=== PATIENT | female | born 1990 | race African-American/Black ===

== ENCOUNTER 2019-10-14 06:42 | Inpatient (IN) | payer BC, SELFPAY ==
[2019-10-14 07:24] LABS: INR-International Normal Ratio 1.1; PTT 45.4 sec (22.9-36.1); Prothrombin Time 14.2 sec (12.0-14.7)
[2019-10-14 07:39] LABS: ALT (SGPT) 10 U/L (8-55); AST (SGOT) 13 U/L (5-34); Albumin 4.1 g/dL (3.5-5.0); Alkaline Phosphatase 75 U/L (40-110); Anion Gap 12 mmol/L (10-20); BUN (Urea Nitrogen) 12 mg/dL (7.0-18.7); Bilirubin, Total 0.3 mg/dL (0.2-1.2); CK (CPK) 98 U/L (29-168); Calc. Creatinine Clearance 0 mL/min (70-130); Calcium 9.7 mg/dL (7.8-10.44); Carbon Dioxide 23 mmol/L (22-29); Chloride 107 mmol/L (98-107); Estimated GFR-MDRD 84; Globulin 3.2 g/dL (2.4-3.5); Glucose 107 mg/dL (70-105); Protein, Total 7.3 g/dL (6.0-8.3); Sodium 138 mmol/L (136-145)
--- NOTE | 2019-10-14 07:49 | CT ---
PRELIMINARY REPORT/[facility]/EMERGENCY AFTER HOURS PROCEDURE: This report was discussed with Shasta Almonte RN by Maureen Champion on Oct 14, 2019 07:06:00 CDT. Urmila waylon electronically signed by Maureen Champion on October 14, 2019 7:06:25 AM CDT PROCEDURE: CT Head without Contrast . HISTORY: Right-sided weakness and altered mental status with aphasia. TECHNIQUE: Axial images were performed without the administration of IV contrast with or without mult iplanar reformations . COMPARISON: None . FINDINGS: Brain shows no mass, hemorrhage, or acute stroke. Ventricles are normal size for patient's age. No acute skull or scalp abnormality. Visualized sinuses and mastoids are clear. IMPRESSION: Normal CT scan of the head . ELECTRONICALLY SIGNED BY: Indra Vega MD Oct 14, 2019 6:58:02 AM CDT FINAL REPORT HEAD CT WITHOUT CONTRAST: HISTORY: Level 1 stroke. Last seen normal today. Right-sided weakness. COMPARISON: None. FINDINGS: Hemorrhage: No intraparenchymal hemorrhage or extra-axial hematoma. Brain parenchyma: Cortical saavedra-white matter differentiation is preserved. No mass effect or midline shift. Basilar cisterns are patent. Ventricular system: Ventricles and sulci are patent and symmetric. Calvarium: Intact. Sinuses and mastoid air cells: Adequate aeration. IMPRESSION: 1. This report is in agreement with initial report by [facility]. 2. No acute intracranial process. Transcribed Date/Time: 10/14/2019 8:14 AM
--- NOTE | 2019-10-14 07:59 | RAD ---
Exam: Chest one view HISTORY:Difficulty with speech. Weakness. Comparison: None FINDINGS: Cardiac silhouette: Normal Aorta: Unremarkable Pulmonary vessels: Normal Costophrenic angles: Clear LUNGS: No masses or consolidation. Pneumothorax: None Osseous abnormalities: None IMPRESSION: No acute cardiopulmonary process.
--- NOTE | 2019-10-14 08:12 | CT ---
PRELIMINARY REPORT/[facility]/EMERGENCY AFTER HOURS PROCEDURE: his report was discussed with Dasha Stevens RN by Tami Parmar on Oct 14, 2019 07:18:00 CDT. Addendum electronically signed by Tami Parmar on October 14, 2019 7:19:18 AM CDT EXAM: CTA Head and Neck with Intravenous Contrast. CLINICAL HISTORY: LEVEL ONE STROKE//LAST SEEN NORMAL 0600 TODAY//RIGHT SIDED WEAKNESS//AMS//APHASIA TECHNIQUE: Axial CTA images of the head and neck performed with intravenous contrast. Two-dimensional MIP and/or three-dimensional MIP and volume rendered reformations were performed. Note: Per PQRS, the description of internal carotid artery percent stenosis, including 0 percent or normal exam, is b ased on [place] Symptomatic Carotid Endarterectomy Trial (NASCET) criteria. CONTRAST: With; ISOVUE 370,100mL COMPARISON: Noncontrast CT head earlier same day. FINDINGS: CTA NECK: COMMON CAROTID ARTERIES No significant stenosis. No dissection or occlusion. INTERNAL CAROTID ARTERIES No stenosis by NASCET criteria. No dissection or occlusion. VERTEBRAL ARTERIES No significant stenosis. No dissection or occlusion. CTA HEAD: ANTERIOR CEREBRAL ARTERIES No significant stenosis. No occlusion. No aneurysm. MIDDLE CEREBRAL ARTERIES No significant stenosis. No occlusion. No aneurysm. POSTERIOR CEREBRAL ARTERIES No significant stenosis. No occlusion. No aneurysm. BASILAR ARTERY No significant stenosis. No occlusion. No aneurysm. OTHER: Mosaic attenuation of the visualized lungs. Residual thymic tissue. Dense fibroglandular rosanna ast tissue. SOFT TISSUES No acute finding. No masses or lymphadenopathy. BONES No acute osseous abnormality. IMPRESSION: No vascular derangement noted on angiogram of the head and neck. Consider MRI if symptom s persist. ELECTRONICALLY SIGNED BY: Ilan Molina MD Oct 14, 2019 7:14:44 AM CDT FINAL REPORT: EXAM: CT ANGIOGRAM OF THE HEAD AND NECK INDICATION: Stroke. COMPARISON: None. TECHNIQUE: CT angiogram of the head and neck are performed in the axial plane. Three-dimensional reformatted guillermo ges are submitted for interpretation. FINDINGS: CTA OF THE HEAD WITH AND WITHOUT CONTRAST: POSTCONTRAST CT OF BRAIN: Pathologic enhancement: No pathologic enhancement the brain. Postcontrast soft tissue neck CT: Aerodigestive tract: Patent. No mucosal abnormality. Sinuses: Adequate aeration.. Orbits: Bilateral ocular lenses are appropriately located. Both globes are intact. Retrobulbar fat is preserved. Symmetric attenuation the optic nerves and ocular rectus muscles. Salivary glands:Symmetric attenuation of the parotid and submandibular glands. Thyroid gland: Appropriate attenuation. Lymph nodes: No evidence of lymphadenopathy by size criteria. Paraspinal muscles: Symmetric attenuation of the sternocleidomastoid muscles. Appropriate attenuation of the paraspinal muscles. Cervical spine:Vertebral body height is maintained. No fracture. No significant central canal stenosi s or significant neural foraminal narrowing. Limited evaluation by technique. Upper mediastinum and lung apices: No acute abnormality. CTA OF THE NECK WITH CONTRAST: Aorta: Appropriate enhancement and luminal diameter. Right carotid artery: Appropriate enhancement and luminal diameter. No significant stenosis based upo n NASCET criteria. Left carotid: Appropriate enhancement and luminal diameter. No significant stenosis based upon NASCET criteria. Subclavian arteries:Appropriate enhancement. Vertebral arteries:Patent throughout their course in the neck. Vertebral arteries are essentially cod ominant. CTA OF THE BRAIN: Intracranial internal carotid arteries:Appropriate enhancement and luminal diameter. Anterior circulation: Slightly decreased in luminal diameter of the right A1 segment, likely represen ting a congenital variant. Proximal A2 segments are essentially symmetric. The right A2 segment is supplied via a patent anterior communicating artery. Symmetric enhancement and luminal diameter of th e M1 segments and proximal MCA branches. Intracranial vertebral arteries: Appropriate enhancement and luminal diameter. Posterior circulation: Appropriate enhancement and luminal diameter. No significant stenosis. IMPRESSION: 1. This report is in agreement with initial report by [facility]. 2. No significant stenosis. Transcribed Date/Time: 10/14/2019 8:38 AM
[2019-10-14 09:01] LABS: #Eosinphils 0.1 thou/uL (0.0-0.7); #Lymphocytes 1.4 thou/uL (1.20-3.40); #Monocytes 0.6 thou/uL (0.11-0.59); #Neutrophils 5.3 thou/uL (1.40-6.50); %Basophils 0.2 % (0.0-1.0); %Eosinophils 1.2 % (0.0-10.0); %Lymphocytes 18.5 % (21.0-51.0); %Monocytes 8.4 % (0.0-10.0); %Neutrophils 71.8 % (42.0-75.0); Hemoglobin 11.1 g/dL (12.0-16.0); Mean Corpuscular HGB CONC 32.6 g/dL (32.0-36.0); Mean Corpuscular Hemoglobin 27.4 pg (27.0-31.0); Mean Corpuscular Volume 84.1 fL (78.0-98.0); Mean Platelet Volume 8.9 fL (7.4-10.4); Platelet Count 133 thou/uL (130-400); RBC Distribution Width 13.9 % (11.5-14.5); Red Blood Cell (RBC) Count 4.03 mill/uL (4.20-5.40); White Blood Cell (WBC) Count 7.4 thou/uL (4.8-10.8)
--- NOTE | 2019-10-14 09:03 | PDOC.FPRHP ---
- History of Present Illness Chief Complaint: AMS, Right sided weakness History of Present Illness: Patient is a 29 yo female with PMHx of Anemia, DVT 3 years ago, and Migraines who presents with complaint of right-sided weakness and difficulty with speech. The weakness has since resolved in her right leg but remains in right arm. Per EMS, her mother noted these deficits approximately 45 minutes prior to calling 911. Patient also had similar episode yesterday and was seen at [facility] with negative workup, discharged to home with a diagnosis of transient alteration of consciousness. Mom said she minimally talked last night and slept most of the afternoon. She also did not eat much for dinner or breakfast this morning. Her last seen normal was yesterday morning (10/13/2019). Per ED provider, while in the ER the Patient would nod and shake her head in response to questions. When asked her to speak, she refused. She then was able to mutter some words that did not seem to make sense. When asked if she had any pain she shook her head no. When asked if this episode this morning is the same as what prompted her ER visit yesterday, she nodded yes. On exam currently she continues to nod/shake her head in response to questions. Attempts to speak, but just mumbles. Pt Nods no when asked if she has headache. Mother voices patient has not had a headache the last 2-3 days. Pt nods no when asked if in any pain. Nods yes when asked if has heavy periods. Mom reports patient has heavy menses with large clots monthly, lasts about 7 days. Mom states pt takes Gabapentin for "nerve pain" in her right arm for past 2-3 years. Takes Amitriptyline & Tylenol for migraines. *most of the history and ROS is obtained from patient's mother who was present at bedside for entirety of interview and exam* ED Course: Given ASA 162 mg. - Allergies/Adverse Reactions Allergies Allergy/AdvReac Type Severity Reaction Status Date / Time No Known Allergies Allergy Unverified 10/14/19 10:43 - Home Medications Medication Instructions Recorded Confirmed Type Acetaminophen [Tylenol Extra 1,000 mg PO Q8H PRN 10/14/19 10/14/19 History Strength] Amitriptyline HCl 10 mg PO HS 10/14/19 10/14/19 History Ferrous Sulfate [Slow Fe] 142 mg PO 10/14/19 History Gabapentin 300 mg PO TID 10/14/19 10/14/19 History Rivaroxaban [Xarelto] 10 mg PO DAILY 10/14/19 10/14/19 History Comments: Per ED med rec, patient takes Tylenol, Amitriptyline, Gabapentin, Xarelto - History PMHx: Anemia, Migraines, Menorrhagia, hx of DVT in 2017 PSHx: breast reduction, left ovary removed FHx: HTN, DM Social: denies EtOH, tobacco, ilicit drug use. Patient's mother reports pt has never used control including any implants (Nexplanon, IUD). - Review of Systems General: reports: weight/appetite/sleep changes (decreased appetite). denies: fever/chills, fatigue ENT: denies: nasal congestion Respiratory: denies: cough, congestion, shortness of breath Cardiovascular: denies: chest pain, palpitation, edema Gastrointestinal: denies: nausea, vomiting, diarrhea, abdominal pain, GI bleeding Genitourinary: denies: dysuria Skin: denies: rashes, lesions, jaundice, itching Musculoskeletal: denies: pain, swelling Neurological: reports: weakness. denies: numbness, syncope, seizure Psychological: reports: other (denies stressors) - Vital signs BP: 127.74 HR: 85 RR: 20 Tmax: 98.6F Pox: 100% on RA - Physical Exam Constitutional: NAD -Constitutional: awake, alert, oriented to person only, unable to assess place & time due to mostly nonverbal status HEENT: normocephalic and atraumatic, conjunctiva clear, no scleral icterus, grossly normal hearing, MMM -HEENT: will track to left and to midline but not to right side. Can look straight ahead. Will turn head to left but will not turn head to right, instead lifts up body and turns torso to look to right side. Neck: supple, FROM, trachea midline, no JVD, no thyromegaly Chest: no-tender to palpation, no lesions Heart: RRR, normal S1/S2, no murmurs/rubs/gallops, pulses present, no edema Lungs: CTAB, no respiratory distress, good air movement Abdomen: soft, non-tender, bowel sounds present, no masses/distention Musculoskeletal: normal structure, normal tone -Musculoskeletal: moving left UE/LE and right LE but does not move right UE. Neurological: normal sensation -Neurological: CN 2-3, 5, 7, 9-12 intact. Questionable CN 4/6 exam. These are intact on left but possible CN 4/6 palsy on right. Skin: no rash/lesions, good turgor, no jaundice Heme/Lymphatic: no unusual bruising or bleeding -Psychiatric: normal affect, answer yes/no questions but not always appropriately FMR H&P: Results - Labs Result Diagrams: 10/14/19 06:48 10/14/19 06:48 Lab results: Sodium 138 mmol/L (136-145) 10/14/19 06:48 Potassium 4.0 mmol/L (3.5-5.1) 10/14/19 06:48 Chloride 107 mmol/L (98-107) 10/14/19 06:48 Carbon Dioxide 23 mmol/L (22-29) 10/14/19 06:48 BUN 12 mg/dL (7.0-18.7) 10/14/19 06:48 Creatinine 0.96 mg/dL (0.6-1.1) 10/14/19 06:48 Glucose 107 mg/dL (70-105) H 10/14/19 06:48 Calcium 9.7 mg/dL (7.8-10.44) 10/14/19 06:48 Total Bilirubin 0.3 mg/dL (0.2-1.2) 10/14/19 06:48 AST 13 U/L (5-34) 10/14/19 06:48 ALT 10 U/L (8-55) 10/14/19 06:48 Alkaline Phosphatase 75 U/L (40-110) 10/14/19 06:48 Creatine Kinase 98 U/L (29-168) 10/14/19 06:48 Serum Total Protein 7.3 g/dL (6.0-8.3) 10/14/19 06:48 Albumin 4.1 g/dL (3.5-5.0) 10/14/19 06:48 - Radiology Interpretation CT scan - head Status: report reviewed by me (no acute pathology) Other Status: report reviewed by me (CTA head/neck: normal, no areas of stenosis) Chest x-ray Status: report reviewed by me (no acute process) FMR H&P: A/P - Problem List (1) Altered mental status Current Visit: Yes Status: Acute Code(s): R41.82 - ALTERED MENTAL STATUS, UNSPECIFIED Qualifiers: Altered mental status type: transient alteration of awareness Qualified Code(s): R40.4 - Transient alteration of awareness (2) Elevated troponin Current Visit: Yes Status: Acute Code(s): R79.89 - OTHER SPECIFIED ABNORMAL FINDINGS OF BLOOD CHEMISTRY - Plan Patient is a 29 yo female who presents with AMS and right-sided weakness whose complaints have now resolved: #Acute Encephalopathy, unknown source -suspect psychosomatic component, low suspicion for intracranial pathology given negative imaging and resolving complaints -fluctuating weakness reported in right UE -CT head negative -CTA head/neck negative -CXR negative -place on stroke, neuro checks -CMP wml -check TSH, RPR, UA, UDS, UPT -MRI pending, r/o Multiple Sclerosis given age and presentation -consider MHMR consult if workup negative #Indet Troponin -trop 0.024, will trend -EKG: NSR, rate 83 #Anemia, normocytic -pt reports hx of, has not taken home Fe in 2-3 months, will restart -admission Hgb 11.1, MCV 84, will monitor #Hx of DVT -continue Xarelto -reports hx of heavy menses with large clots, consider antiphospholipid syndrome outpt workup Diet: Regular VTE: Xarelto GI PPX: Tums Code status: FULL Dispo: Stable, admitted to obs on stroke unit. Continue to monitor for mental status changes. Anticipate LOS <48 hrs. FMR H&P: Upper Level - Pertinent history 29 yo AAF with PMH of DVT on xarelto, anemia, Rt arm neuropathy, and migraines ( on amitryptiline PRN) presents for waxing and waning symptoms that started yesterday around 0745 AM. Hx is taken mostly from mother as patient has difficulty speaking, but patient nods her head yes and no (sometimes her answers are inconsistent). Mother reports yesterday morning she was having difficulty walking due to weakness as well as difficulty talking, then was "non- responsive" in her chair. They had a workup at [facility] with a negative head CT, and were sent home with a diagnosis of TIA. Her symptoms were not at baseline when the left [facility] per mother. This morning, pt acutely worsened with difficulty walking and her speech became worse. They called EMS, who brought them [facility] ED. Mother reports pt had a headache 2 nights ago ( night). Mother denies psych history in the patient or recent stressors, SI/HI. She lives at home with her mother and twin sister. Denies current headache, reports loss of appetite. Denies fever/chills, cough/congestion, vomiting/nausea , chest pain/palpitationsdominal pain/dysuria/hematuria/hematochezia. Reports constipation. Mother denies that patient has hx of STIs, tobacco, alcohol, or drug use. In the ED: CT head neg for bleed, CTA head/neck normal. EKG showed NSR in the 80s. Patient's symptoms were waxing and waning: it was noted in the ED documentation that her symptoms seemed to worsen when her mother was present. - Pertinent findings General: Patient appears drowsy, slow to respond to questions. Eyes: PERRLA. Difficulty tracking gaze to the right at times, however she was able to at times. +Gaze palsy. Unable to assess visual field quadrants Mouth: MMM, no erythema, soft palate lifts equally bilaterally Throat: No LAD, trachea midline, supple Heart: RRR no murmur Lungs: BCTA Abd: soft, nontender, BS+, obese Extremities: Pulses 2+ in all extremities Neuro: +aphasia (she can state yes or no at times, can state short phrases). Nods yes or shakes head no. Inconsistently answers questions. Right facial droop. Entry Analyst strength 3/5 right hand, Rt arm had small movement against gravity. Unable to perform FTN or heel to szymanski bilaterally. +dysdiadochokinesia. Patellar reflex 2+ bilat. Strength 5/5 BLE. Strength 5/5 LUE. - Plan Date/Time: 10/14/19 0901 Yee Aggarwal, have evaluated this patient and agree with findings/plan as outlined by music industry intern resident. Pertinent changes/additions are listed here. Acute Encephalopathy CVA r/o, concern for MS vs other -symptoms seem to be waxing/waning, onset >24 hrs ago. S/p ASA. NIH 11 on my exam. -CTA head/neck negative, CT Head WNL -MRI to evaluate for CVA vs MS vs other -UA, UDS, RPR, TSH pending -FLP and A1C to evaluate risk factors -Reassess patient once mother not present to see if symptoms have changed; if no organic cause found, consider psychosomatic source -Request records from [facility] Anemia -Continue home Fe hx of DVT -Continue home xarelto -No concerning sx of DVT on exam Diet: NPO for speech DVT ppx: home xarelto PCP: [facility], [facility] physician Code status: full code Admit: stroke obs, LOS <48 hrs Addendum - Attending - Attending Attestation Date/Time: 10/14/19 1097 I personally evaluated the patient and discussed the management with Dr. Mcdermott/ Sho. I agree with the History, Examination, Assessment and Plan documented above with any addition or exceptions noted below. Patient here with history of DVT/VTE who presents with acute mental status change and focal neuro deficit that may be fluctuating. CT/CTA negative. Will admit for encephalopathy and CVA r/o. MRI. Possible neuro consult, but also need to see if this could be psychological after ensuring no major medical component. Further mgmt pending MRI result.
[2019-10-14] MEDS ORDERED: Aspirin Chewable 81 MG TAB ONE (09:10)
[2019-10-14 09:12] LABS: BHCG - Serum Negative (NEGATIVE); Pregs Control Background? CLEAR/WHITE (CLR/WHITE); Pregs Control Bar Appear? YES (CONTROL BAR)
[2019-10-14] MEDS ORDERED: Ondansetron ODT 4 MG TAB SL PRN (10:44)
[2019-10-14] MEDS ORDERED: Ondansetron PF 4 MG/2 ML Vial IVP PRN (10:44)
[2019-10-14] MEDS ORDERED: Acetaminophen 325 MG TAB PO PRN ×2 (10:44→11:55)
[2019-10-14 10:59] LABS: Troponin I 0.021 ng/mL (< 0.028)
[2019-10-14 11:08] VITALS: BMI 34.2
[2019-10-14] MEDS ORDERED: Ondansetron ODT 4 MG TAB PO PRN (11:55)
[2019-10-14] MEDS ORDERED: Senokot S 8.6-50 MG TAB PO PRN (11:55)
[2019-10-14] MEDS ORDERED: Calcium Carbonate 500 MG ChewTAB PO PRN (11:55)
[2019-10-14] MEDS ORDERED: Aspirin 81 mg Enteric Coated Tablet PO SCH (12:15)
[2019-10-14 14:28] LABS: Bacteria/HPF None Seen HPF (None Seen); Bilirubin Negative (Negative); Blood, Urine Negative (Negative); Clarity Clear (Clear); Glucose, Urine (Dipstick) Normal (Negative); Leukocyte Negative Leu/uL (Negative); Nitrite Negative (Negative); Protein, Urine (Dipstick) Negative (Neg-Trace); RBC/HPF 0-3 HPF (0-3); Squamous Epithelial 0-3 HPF (0-3); Urobilinogen Normal mg/dL (Less than 2); WBC/HPF 0-3 HPF (0-3)
[2019-10-14 14:31] LABS: Urine Culture Reflex No No
[2019-10-14 14:39] LABS: Amphetamine Not Detected (NotDetected); Barbiturates Screen Not Detected (NotDetected); Benzodiazepine Screen Not Detected (NotDetected); Cocaine Metabolite Screen Not Detected (NotDetected); Medtox Control Line Valid? VALID (VALID); Medtox Reader # READER 4; Methadone Not Detected (NotDetected); Methamphetamine Not Detected (NotDetected); Opiate Screen Not Detected (NotDetected); Oxycodone Screen Not Detected (NotDetected); Phencyclidine (PCP) Not Detected (NotDetected); THC/Cannabinoid Screen Not Detected (NotDetected); Tricyclic Screen Not Detected (NotDetected)
[2019-10-14 15:03] LABS: Cardiac Risk 3.7 (Less than 4.5)
--- NOTE | 2019-10-14 15:03 | MRI ---
Exam: Brain MRI without contrast HISTORY: Right-sided weakness. Evaluate for CVA versus candidate ischemic attack COMPARISON: None FINDINGS: Calvarial marrow signal intensity: Appropriate T1 signal Gradient echo sequence: No hemorrhage Brain parenchyma: No mass, mass effect or midline shift. Brain volume, age-appropriate. Cortical saavedra-white matter differentiation: Preserved Restricted diffusion: There is absent restricted diffusion involving the left peguero radiata along wi th additional areas of restricted diffusion involving the cortex and subcortical white matter along the left temporal lobe. Additional restricted diffusion is noted in the left deep saavedra matter structu res. White matter signal intensities:There is associated T2 and FLAIR white matter hyperintensities with t he areas of infarction as described above. There is sulcal effacement edema involving the left temporal lobe. Sinuses: Adequate aeration of the paranasal sinuses and mastoid air cells. IMPRESSION: Acute left MCA distribution infarct.
[2019-10-14 15:11] LABS: Troponin I 0.021 ng/mL (< 0.028)
[2019-10-14 15:23] LABS: Syphilis Antibody Nonreactive (Nonreactive); Syphilis Antibody Index 0.06 S/CO (<1.00 Non-Reactive)
[2019-10-14] MEDS ORDERED: hydrALAZINE 20 MG/ML VIAL SLOW IVP PRN (15:53)
[2019-10-14] MEDS ORDERED: Clopidogrel Bisulfate 75 MG TAB PO SCH (16:00)
[2019-10-14] MEDS: Atorvastatin Calcium 40 MG TAB PO SCH (21:36)
[2019-10-15 05:00] LABS: #Eosinphils 0.1 thou/uL (0.0-0.7); #Lymphocytes 1.3 thou/uL (1.20-3.40); #Monocytes 0.6 thou/uL (0.11-0.59); #Neutrophils 4.9 thou/uL (1.40-6.50); %Basophils 0.5 % (0.0-1.0); %Eosinophils 1.5 % (0.0-10.0); %Lymphocytes 18.3 % (21.0-51.0); %Monocytes 9.2 % (0.0-10.0); %Neutrophils 70.5 % (42.0-75.0); Hemoglobin 10.3 g/dL (12.0-16.0); Mean Corpuscular Hemoglobin 26.7 pg (27.0-31.0); Mean Corpuscular Volume 83.5 fL (78.0-98.0); Mean Platelet Volume 9.1 fL (7.4-10.4); Platelet Count 150 thou/uL (130-400); RBC Distribution Width 14.1 % (11.5-14.5); Red Blood Cell (RBC) Count 3.84 mill/uL (4.20-5.40); White Blood Cell (WBC) Count 6.9 thou/uL (4.8-10.8)
[2019-10-15 05:18] LABS: ALT (SGPT) 9 U/L (8-55); AST (SGOT) 14 U/L (5-34); Albumin 3.8 g/dL (3.5-5.0); Alkaline Phosphatase 68 U/L (40-110); Anion Gap 11 mmol/L (10-20); BUN (Urea Nitrogen) 8 mg/dL (7.0-18.7); Bilirubin, Total 0.3 mg/dL (0.2-1.2); Calc. Creatinine Clearance 169 mL/min (70-130); Calcium 9.4 mg/dL (7.8-10.44); Carbon Dioxide 21 mmol/L (22-29); Cardiac Risk 3.9 (Less than 4.5); Chloride 107 mmol/L (98-107); Cholesterol 198 mg/dl (< 200 Desired); Estimated GFR-MDRD Greater than 90; Globulin 3.1 g/dL (2.4-3.5); Glucose 100 mg/dL (70-105); HDL Cholesterol 51 mg/dL (>60 Neg Risk); LDL Cholesterol, Calculated 131 mg/dL; Potassium 3.8 mmol/L (3.5-5.1); Protein, Total 6.9 g/dL (6.0-8.3); Sodium 135 mmol/L (136-145); Triglycerides 79 mg/dL (Less than 150)
--- NOTE | 2019-10-15 07:48 | PDOC.FM ---
- Subjective Subjective: Patient stable this morning compared to exam yesterday. She continues to be able to answer yes/no questions by shaking her head, however she is not able to state words. She does express that she has some decreased sensation on right side compared to left. RUE still weak compared to LUE. Patient was found on MRI yesterday to have acute left MCA infarct. Further discussion with Patient's mother revealed that patient is followed by Dr. Tucker at [facility] for "blood disorder ". Mom states that she was told that "myself and Aracely could have a blood clot at any time and we're both on blood thinners for it". Mother also states that patient's Xarelto was recently decreased from 20 mg to 10 mg daily. - Objective MAR Reviewed: Yes Vital Signs & Weight: Vital Signs (12 hours) Temp Pulse Resp BP Pulse Ox 10/15/19 03:31 98.2 F 92 18 120/67 98 10/14/19 23:50 98.5 F 67 20 138/78 99 10/14/19 20:00 99 Weight Weight 111.158 kg I&O: 10/14/19 10/15/19 10/16/19 06:59 06:59 06:59 Intake Total 150 Output Total 150 Balance 0 Result Diagrams: 10/15/19 04:38 10/15/19 04:38 Phys Exam - Physical Examination Constitutional: NAD HEENT: moist MMs, sclera anicteric unable to track past midline to the right side Neck: no JVD, supple, full ROM Respiratory: no wheezing, clear to auscultation bilateral Cardiovascular: RRR, no significant murmur Gastrointestinal: soft, no distention, positive bowel sounds Musculoskeletal: no edema, pulses present strength 3/5 RUE, 5/5 LUE, 4/5 RLE, 5/5 LLE. Decreased sensation on right. Psychiatric: normal affect Deviation from normal: alert, oriented to person & place, difficult to assess time Skin: no rash, normal turgor Dx/Plan (1) Altered mental status Code(s): R41.82 - ALTERED MENTAL STATUS, UNSPECIFIED Status: Acute Qualifiers: Altered mental status type: transient alteration of awareness Qualified Code(s): R40.4 - Transient alteration of awareness (2) Elevated troponin Code(s): R79.89 - OTHER SPECIFIED ABNORMAL FINDINGS OF BLOOD CHEMISTRY Status : Acute - Plan Plan: Patient is a 29 yo female who presents with AMS and right-sided weakness whose complaints have now resolved: #Acute Infarct of left MCA -MRI on 10/13 reveals acute infarct of left MCA -continued weakness in right UE, stable compared to yesterday's exam -patient able to answer yes/no questions, is not stating words -CT head negative on 10/13 -repeat CT head on 10/14 preliminary report states no acute bleed, has evolving left MCA stroke with mild increased edema of periventricular white matter and anterior left basal ganglia region -CTA head/neck negative -CXR negative -place on stroke, neuro checks q4h with NIHSS, stroke team notified -CMP wml -TSH 0.613 -RPR, UA, UDS, UPT all negative -Consult Neurology, Dr. Mcwilliams, appreciate recs -obtain ECHO, results pending -hold Xarelto at this time to prevent hemorrhagic conversion, can consider restarting Xarelto if head CT today does not reveal an acute bleed or progression -PT/OT/Speech consulted, appreciate recs--recommend inpt rehab -Post-acute screen placed today -Case Management consulted today for discharge planning, anticipate patient will need inpatient rehab #Indet Troponin -trop 0.024, will trend, 0.021, 0.021 -EKG: NSR, rate 83 #Anemia, normocytic -pt reports hx of, has not taken home Fe in 2-3 months, will restart -admission Hgb 11.1, MCV 84, will monitor #Hx of DVT -hold Xarelto due to acute CVA -reports hx of heavy menses with large clots, not able to use control due to "blood disorder" -patient is followed by heme/onc Dr. Tucker at [facility] for a "blood clot disorder", recently had Xarelto dosing decreased from 20 mg to 10 mg -consider DEE from Dr. Tucker Diet: Regular VTE: Xarelto--currently held, will consider restarting later today GI PPX: Tums Code status: FULL Dispo: Stable, admitted to inpatient on stroke unit. Continue to monitor for mental status changes. Anticipate LOS <48 hrs. Addendum - Attending - Attending Attestation Date/Time: 10/15/19 7947 I personally evaluated the patient and discussed the management with Dr. Mcdermott. I agree with the History, Examination, Assessment and Plan documented above with any addition or exceptions noted below. Patient with history of DVT/VTE presenting with focal neuro deficits and mental status changes now found to have acute L MCA infarct. Repeat CT today shows evolving infarct. She has some improvement in movement, mentation, and speech today but still unable to complete full sentences or thoughts. Neuro on board. Will need intense therapy. Complete the usual post CVA workup. Recommend thrombotic workup. Restart her NOAC.
--- NOTE | 2019-10-15 08:19 | CT ---
PRELIMINARY REPORT/[facility]/EMERGENCY AFTER HOURS PROCEDURE: PROCEDURE: CT Head without Contrast . HISTORY: Follow-up LEFT MCA infarct. TECHNIQUE: Axial images were performed without the administration of IV contrast with or without mult iplanar reformations . COMPARISON: 10/14/2019. FINDINGS: Evolving LEFT MCA stroke with mild increased edema periventricular white matter and anterior LEFT bas al ganglia region. No intracranial hemorrhage, midline shift, or hydrocephalus. No other acute change identified. IMPRESSION: Evolving LEFT MCA stroke with some increased edema LEFT cerebrum as described above. ELECTRONICALLY SIGNED BY: Indra Vega MD October 15, 2019 4:23:49 AM CDT This report is intended for review by the ordering physician only, in accordance of law. If you recei ve this report in error, please call [facility] at [phone]. FINAL REPORT EMERGENCY AFTER HOURS EXAM BRAIN CT WITHOUT IV CONTRAST 0409 HOURS 10/15/2019 COMPARISON: 10/14/2019. FINDINGS: Evolving patchy left MCA stroke with minimal right-sided midline shift since the prior study. No new hemorrhage. This report is in agreement with preliminary report by [facility]. POS: RRE
[2019-10-15] MEDS: Ferrous Sulfate 325 MG TAB PO SCH (08:46)
[2019-10-15] MEDS ORDERED: Rivaroxaban 10 MG TAB PO SCH (09:00)
[2019-10-15] MEDS ORDERED: Aspirin 325 mg Enteric Coated Tablet PO SCH (09:00)
[2019-10-15] MEDS ORDERED: Clopidogrel Bisulfate 75 MG TAB PO SCH (09:00)
[2019-10-15] MEDS: Rivaroxaban 10 MG TAB PO SCH (10:02)
--- NOTE | 2019-10-15 13:58 | CON ---
DATE OF CONSULTATION: 10/15/2019 CONSULTING PHYSICIAN: [facility]. IMPRESSION: 1. Left middle cerebral artery stroke, likely secondary to hypercoagulable state. 2. Slight midline shift due to the patchy area of infarct. 3. No evidence of secondary hemorrhage. PLAN: 1. Restart Xarelto 20 mg a day. 2. Fluid restriction to 1000 mL a day. 3. Keep head of bed elevated [address] tomorrow. 5. Rehab screening. HISTORY OF PRESENT ILLNESS: Ms. Light is a 29-year-old black female with a known history of DVT. She had been on Xarelto. She is followed by a doctor at [facility]. She developed expressive aphasia and right-sided weakness. She was initially seen at [facility] Emergency Room and discharged home. Her symptoms continued and she presented here. CAT scan revealed evidence of some early ischemic change in the left MCA territory. There was no evidence of a proximal clot that could be addressed at that time and subsequently identified that she did have a distal ICA stenosis from what I can tell from the radiology report. She had a followup CT and MRI of the brain, which showed some patchy areas of ischemic injury, which is primarily deep. There was a slight midline shift associated with it. The patient reports some degree of headache. She has been able to eat. She walk 60 feet with a roller walker. Her echocardiogram is pending. Her lab work was otherwise only notable for mild anemia. PAST HISTORY: DVT. ALLERGIES: NONE. SOCIAL HISTORY: No tobacco or alcohol abuse noted. MEDICATIONS: Xarelto. FAMILY HISTORY: Positive for hypercoagulable state. REVIEW OF SYSTEMS: Ten-system review of systems otherwise negative. PHYSICAL EXAMINATION: GENERAL: She is a well-nourished young woman, lying in bed, in no acute distress. VITAL SIGNS: Pulse 83, in the sinus rhythm. HEENT: Pupils are equal and reactive. Conjunctivae clear. Oropharynx clear. NECK: Supple. EXTREMITIES: No cyanosis. NEUROLOGIC: She was alert and cooperative. She was able to answer with head nods. She seemed to have good comprehension. She had minimal ability to speak. She had a right facial droop. There was a fairly dense right hemiparesis with only partial antigravity strength in the right upper extremity. Sensation was grossly symmetric. No abnormal movements were seen. IMAGING: Reviewed. SUMMARY: This is an unfortunate young woman, who has suffered a left MCA stroke. There was a slight degree of edema, but fortunately the area of infarct is quite patchy. I think that she will not be able to recover from this with time. I agree with your management. Job ID: [id number]
[2019-10-15] MEDS: Atorvastatin Calcium 40 MG TAB PO SCH (21:16)
--- NOTE | 2019-10-16 07:09 | CT ---
CT OF THE BRAIN WITHOUT CONTRAST: Date: 10/16/2019 COMPARISON: 10/15/2019. HISTORY: Monitor MCA distribution infarction. TECHNIQUE: Multiple contiguous axial images were obtained in a CT of the brain without contrast. FINDINGS: There has been developing infarction in the left basal ganglia. Slight increased edema causes effacem ent of the left lateral ventricle with mild shift of the midline to the right. No intracranial hemorr roque is seen. There is no evidence of hydrocephalus or extra-axial fluid collection. The calvarium and overlying soft tissues are unremarkable. Visualized paranasal sinuses and mastoid a ir cells are well aerated. IMPRESSION: Developing left MCA distribution infarction. POS: EDE
--- NOTE | 2019-10-16 07:44 | PDOC.FM ---
- Subjective Subjective: Patient was resting comfortably in bed at the time of evaluation. She denied any acute overnight events, but was still only able to shake her head "Yes" and "No", with a notable inability to articulate words or phrases. Patient's father was present in the room at the time of evaluation and assisted with a portion of the evaluation. - Objective Vital Signs & Weight: Vital Signs (12 hours) Temp Pulse Resp BP BP Pulse Ox 10/16/19 04:44 98.3 F 80 18 99/68 97 10/16/19 00:35 99.2 F 86 20 99/62 98 10/15/19 21:56 97.9 F 75 20 131/75 100 Weight Weight 111.158 kg I&O: 10/15/19 10/16/19 10/17/19 06:59 06:59 06:59 Intake Total 150 720 Output Total 150 Balance 0 720 Result Diagrams: 10/15/19 04:38 10/15/19 04:38 Phys Exam - Physical Examination Constitutional: NAD HEENT: PERRLA, sclera anicteric, oral pharynx no lesions Neck: supple, full ROM Respiratory: no wheezing, no rales, no rhonchi, clear to auscultation bilateral Cardiovascular: RRR, no significant murmur, no rub Gastrointestinal: soft, non-tender, no distention, positive bowel sounds Musculoskeletal: no edema, pulses present Neurological: moves all 4 limbs Right-sided facial droop, RUE and RLE weakness improved since 10/14 Skin: no rash Dx/Plan (1) CVA (cerebral vascular accident) Code(s): I63.9 - CEREBRAL INFARCTION, UNSPECIFIED Status: Acute (2) Altered mental status Code(s): R41.82 - ALTERED MENTAL STATUS, UNSPECIFIED Status: Acute Qualifiers: Altered mental status type: transient alteration of awareness Qualified Code(s): R40.4 - Transient alteration of awareness (3) Elevated troponin Code(s): R79.89 - OTHER SPECIFIED ABNORMAL FINDINGS OF BLOOD CHEMISTRY Status : Acute - Plan Plan: Patient is a 29 y/o female who presents to the ED with AMS and right-sided weakness. #Acute Infarct of Left MCA -CXR: NAF -CT Brain (10/13): NAF -MRI Brain (10/13): Left MCA Infarct -CTA Head/Neck: NAF -CT Brain (10/14): Evolving Left MCA Infarct -CT Brain (10/15): Evolving Left MCA Infarct -Physical exam continues to demonstrate right-sided weakness / hemiparesis -Patient able to indicate "Yes" and "No" but cannot articulate individual words or phrases -Neurochecks Q4H w/ NIHSS -Stroke Team: Consulted, recs appreciated -RPR, UA, UDS, UPT - Unremarkable -Neuro Consult: Dr. Mcwilliams aware, following - recommended Echo and increasing home Xarelto to 20 mg PO daily -Echo: EF(50-55%) -FLP: Tri(79), Chol(198), LDL(131), HDL(51) - ASCVD Risk: 0.4% - Will continue Atorvastatin 40 mg PO daily -HgA1c: 5.2 -TSH: 0.6135 -PT/OT/Speech: Consulted - recommend Inpatient Rehab -Post-Acute Screen: Pending -Case Management: Consulted, appreciate assistance w/ DC planning #Indeterminate Troponins -Trops: 0.024, 0.021, 0.021 -EKG: NSR (83) #Normocytic Anemia -Noted during initial evaluation w/ patient and patient's mother - has not been on Supplemental Iron for 2-3 months -H.1 / MCV: 84 - will initiate Supplemental Iron and continue to monitor #Hx of DVT -Patient/Patient's mother reports Hx of heavy menses with large clots, not able to use control due to unspecified "blood disorder" -Patient's grandmother mentioned Hx of multiple bilateral mastectomies due to "uncontrolled growth" - breasts appear abnormally large and firm w/ atypical skin dimples on physical exam, abnormally dense on CXR -Patient is currently followed Dr. Tucker (Hem/Onc) at [facility] for a "blood disorder" - DEE initiated PCP: Dr. Tucker Code: Full Diet: Regular Activity: Ad tanisha VTE: Xarelto 20 mg PO daily, per Neuro GI PPX: Tums Dispo: Patient is currently stable and admitted to the Stroke Floor for ongoing evaluation following an Acute Left MCA Infarct. Will continue to monitor closely , specifically with regard to Neuro exam, and coordinate as needed with Neuro. Recs requested from patient's PCP to better understand alleged hypercoagulable state. Expected LOS < 48H. Addendum - Attending - Attending Attestation Date/Time: 10/16/19 664 I personally evaluated the patient and discussed the management with Dr. Roper I agree with the History, Examination, Assessment and Plan documented above with any addition or exceptions noted . below - Patient sitting up in bed. Afebrile VSS. A/P: 1) L MCA CVA - continue PT/ST/OT. Continue xarelto. Awaiting rehab screen. 2) Hypercoagulable disorder - awaiting records from [facility]; continue xarelto
[2019-10-16 08:33] LABS: Hemoglobin A1c 5.4 % (4.0-6.0)
[2019-10-16] MEDS: Ferrous Sulfate 325 MG TAB PO SCH (11:16)
[2019-10-16] MEDS: Rivaroxaban 10 MG TAB PO SCH (11:16)
--- NOTE | 2019-10-16 12:15 | PDOC.HOSPP ---
- Subjective Encounter Date: 10/16/19 Subjective: NEUROLOGY PROGRESS NOTE No acute events overnight. Aphasic due to left MCA stroke and responds to yes and no question. Father at bedside during the examination. - Objective Vital Signs & Weight: Vital Signs (12 hours) Temp Pulse Resp BP BP Pulse Ox 10/16/19 08:00 98.3 F 90 18 114/68 98 10/16/19 04:44 98.3 F 80 18 99/68 97 10/16/19 00:35 99.2 F 86 20 99/62 98 Weight Weight 245 lb 1 oz I&O: 10/15/19 10/16/19 10/17/19 06:59 06:59 06:59 Intake Total 150 720 Output Total 150 Balance 0 720 Result Diagrams: 10/15/19 04:38 10/15/19 04:38 Radiology Reviewed by me: Yes EKG Reviewed by me: Yes Hospitalist ROS - Review of Systems ROS unobtainable: due to mental status (aphasia) Neurological: reports: weakness, change in speech - Medication Medications: Active Medications Generic Name Dose Route Start Last Admin Trade Name Joseq PRN Reason Stop Dose Admin Atorvastatin Calcium 40 mg 10/14/19 21:00 10/15/19 21:16 Lipitor PO 40 mg HS ALISHA Administration Ferrous Sulfate 325 mg 10/15/19 08:00 10/16/19 11:16 Feosol PO 325 mg QAM-WM ALISHA Administration Rivaroxaban 20 mg 10/15/19 09:00 10/16/19 11:16 Xarelto PO 20 mg DAILY ALISHA Administration - Exam General Appearance: awake alert Eye: PERRL ENT: normocephalic atraumatic Neck: supple Heart: RRR Respiratory: CTAB Gastrointestinal: soft Extremities: no cyanosis, no clubbing, no edema Skin: normal turgor, no lesions, no rashes Neurological: facial droop, hemiplegia, speech deficit Neurological - other findings: right facial droop, right hemiparesis, aphasia Musculoskeletal: no muscle wasting Psychiatric: normal affect, normal behavior (aphasic) Hosp A/P (1) CVA (cerebral vascular accident) Code(s): I63.9 - CEREBRAL INFARCTION, UNSPECIFIED Status: Acute (2) Altered mental status Code(s): R41.82 - ALTERED MENTAL STATUS, UNSPECIFIED Status: Acute Qualifiers: Altered mental status type: transient alteration of awareness Qualified Code(s): R40.4 - Transient alteration of awareness - Plan plan discussed w/ family, PT/OT, speech therapy, DVT proph w/lovenox 29 year old with hypercoaguable disorder presented with aphasia with right hemiparesis. MRI Brain reviewed which showed Left MCA Infarction. CTA Head/Neck reviewed which did not reveal hemodynamically significant stenosis Neurochecks every 4 hours. Continue Xarelto to 20 mg PO daily. 2D Echo: EF(50-55%) Continue Atorvastatin 40 mg PO daily for secondary stroke prevention. Telemetry HgA1c: 5.2 and TSH: 0.6135. Results noted. PT/OT/Speech . Rehab recommended. Recommend EEG for episode of altered mental status. Case Management on board for discharge planning. Continue medical management per primary team. Plan discussed in detail with patient and the father.
[2019-10-16] MEDS: Atorvastatin Calcium 40 MG TAB PO SCH (20:39)
--- NOTE | 2019-10-17 08:10 | PDOC.FM ---
- Subjective Subjective: Patient was resting comfortably in bed at the time of evaluation. Although she remained unable to articulate words or complete sentences, she denied any acute overnight events, to include visual disturbances, chest pain, SOB or fevers, by using yes/no questioning. - Objective Vital Signs & Weight: Vital Signs (12 hours) Temp Pulse Resp BP Pulse Ox 10/17/19 04:12 97.5 F L 62 18 101/71 99 10/16/19 23:50 98 F 88 18 113/86 100 10/16/19 20:35 98 F 79 21 H 105/63 99 Weight Admit Weight 111.157 kg Weight 111.157 kg I&O: 10/16/19 10/17/19 10/18/19 06:59 06:59 06:59 Intake Total 720 Balance 720 Result Diagrams: 10/15/19 04:38 10/15/19 04:38 Phys Exam - Physical Examination Constitutional: NAD HEENT: moist MMs, sclera anicteric, oral pharynx no lesions Neck: supple, full ROM Respiratory: no wheezing, no rales, no rhonchi, clear to auscultation bilateral Cardiovascular: RRR, no significant murmur, no rub Gastrointestinal: soft, non-tender, no distention, positive bowel sounds Musculoskeletal: no edema, pulses present Neurological: non-focal Right-sided facial droop, 1/5 strength in RUE, 2/5 Strength in RLE Psychiatric: normal affect Skin: no rash Dx/Plan (1) CVA (cerebral vascular accident) Code(s): I63.9 - CEREBRAL INFARCTION, UNSPECIFIED Status: Acute (2) Altered mental status Code(s): R41.82 - ALTERED MENTAL STATUS, UNSPECIFIED Status: Acute Qualifiers: Altered mental status type: transient alteration of awareness Qualified Code(s): R40.4 - Transient alteration of awareness (3) Elevated troponin Code(s): R79.89 - OTHER SPECIFIED ABNORMAL FINDINGS OF BLOOD CHEMISTRY Status : Acute - Plan Plan: Patient is a 29 y/o female who presents to the ED with AMS and right-sided weakness. #Acute Infarct of Left MCA -CXR: NAF -CT Brain (10/13): NAF -MRI Brain (10/13): Left MCA Infarct -CTA Head/Neck: NAF -CT Brain (10/14): Evolving Left MCA Infarct -CT Brain (10/15): Evolving Left MCA Infarct -Physical exam continues to demonstrate right-sided weakness / hemiparesis -Patient able to indicate "Yes" and "No" but cannot articulate individual words or phrases -Neurochecks Q4H w/ NIHSS -Stroke Team: Consulted, recs appreciated -RPR, UA, UDS, UPT - Unremarkable -Neuro Consult: Dr. Mcwilliams aware, following - recommended Echo and increasing home Xarelto to 20 mg PO daily -Echo: EF(50-55%) -FLP: Tri(79), Chol(198), LDL(131), HDL(51) - ASCVD Risk: 0.4% - Will continue Atorvastatin 40 mg PO daily -HgA1c: 5.2 -TSH: 0.6135 -PT/OT/Speech: Consulted - recommend Inpatient Rehab -Post-Acute Screen: Pending -Case Management: Consulted, appreciate assistance w/ DC planning - choice letter sent #Indeterminate Troponins -Trops: 0.024, 0.021, 0.021 -EKG: NSR (83) #Normocytic Anemia -Noted during initial evaluation w/ patient and patient's mother - has not been on Supplemental Iron for 2-3 months -H.1 / MCV: 84 - will initiate Supplemental Iron and continue to monitor #Hx of DVT -Patient/Patient's mother reports Hx of heavy menses with large clots, not able to use control due to unspecified "blood disorder" -Patient's grandmother mentioned Hx of multiple bilateral breast surgeries due to "uncontrolled growth" - breasts appear abnormally large and firm w/ atypical skin dimples on physical exam, abnormally dense on CXR -Patient is currently followed Dr. Tucker (Hem/Onc) at [facility] for a "blood disorder" - records received and reviewed -No known diagnosis or reason for hypercoagulable state found within & records PCP: Dr. Tucker Code: Full Diet: Regular Activity: Ad tanisha VTE: Xarelto 20 mg PO daily, per Neuro GI PPX: Tums Dispo: Patient is currently stable and admitted to the Stroke Floor for ongoing evaluation following an Acute Left MCA Infarct. Will continue to monitor closely , specifically with regard to Neuro exam, and coordinate as needed with Neuro. Will coordinate as needed with Case Management for DC planning. Expected LOS < 48H. Addendum - Attending - Attending Attestation Date/Time: 10/17/19 1412 I personally evaluated the patient and discussed the management with Dr. Roper I agree with the History, Examination, Assessment and Plan documented above with any addition or exceptions noted below - Patient having EEG; denies complaints. Afebrile VSS. A/P: 1) L MCA CVA- continue xarelto; continue PT/OT/ST ; awaiting rehab eval. .
[2019-10-17] MEDS: Ferrous Sulfate 325 MG TAB PO SCH (09:38)
[2019-10-17] MEDS: Rivaroxaban 10 MG TAB PO SCH (09:39)
--- NOTE | 2019-10-17 12:39 | PDOC.HOSPP ---
- Subjective Encounter Date: 10/17/19 Subjective: NEUROLOGY PROGRESS NOTE No acute events overnight. Aphasic due to left MCA stroke and responds to yes and no question. - Objective Vital Signs & Weight: Vital Signs (12 hours) Temp Pulse Pulse Pulse Resp BP BP 10/17/19 11:25 97.6 F 70 16 10/17/19 08:44 74 74 112/63 106/70 10/17/19 07:50 98.3 F 74 18 10/17/19 04:12 97.5 F L 62 18 BP Pulse Ox 10/17/19 11:25 115/76 100 10/17/19 08:44 10/17/19 07:50 101/68 99 10/17/19 04:12 101/71 99 Weight Admit Weight 245 lb 0.96 oz Weight 245 lb 0.96 oz I&O: 10/16/19 10/17/19 10/18/19 06:59 06:59 06:59 Intake Total 720 Balance 720 Result Diagrams: 10/15/19 04:38 10/15/19 04:38 Radiology Reviewed by me: Yes EKG Reviewed by me: Yes Hospitalist ROS - Review of Systems ROS unobtainable: due to mental status (aphasia) Neurological: reports: weakness, numbness, change in speech (aphasia) - Medication Medications: Active Medications Generic Name Dose Route Start Last Admin Trade Name Freq PRN Reason Stop Dose Admin Acetaminophen 650 mg 10/14/19 11:55 10/16/19 20:38 Tylenol PO 650 mg Q4H PRN Administration Headache/Fever/Mild Pain (1-3) Atorvastatin Calcium 40 mg 10/14/19 21:00 10/16/19 20:39 Lipitor PO 40 mg HS ALISHA Administration Ferrous Sulfate 325 mg 10/15/19 08:00 10/17/19 09:38 Feosol PO 325 mg QAM-WM ALISHA Administration Rivaroxaban 20 mg 10/15/19 09:00 10/17/19 09:39 Xarelto PO 20 mg DAILY ALISHA Administration Sodium Chloride 10 ml 10/14/19 11:55 10/16/19 20:39 Flush - Normal Saline IVF 10 ml PRN PRN Administration Saline Flush - Exam General Appearance: awake alert Eye: PERRL, anicteric sclera ENT: normocephalic atraumatic, no oropharyngeal lesions Neck: supple Heart: RRR Respiratory: CTAB Gastrointestinal: soft, no palpable masses Extremities: no cyanosis, no clubbing, no edema Skin: normal turgor, no lesions, no rashes Neurological: facial droop, hemiplegia, speech deficit, vision deficit Neurological - other findings: left hemiparesis Musculoskeletal: no muscle wasting (aphasic) Hosp A/P (1) CVA (cerebral vascular accident) Code(s): I63.9 - CEREBRAL INFARCTION, UNSPECIFIED Status: Acute (2) Altered mental status Code(s): R41.82 - ALTERED MENTAL STATUS, UNSPECIFIED Status: Acute Qualifiers: Altered mental status type: transient alteration of awareness Qualified Code(s): R40.4 - Transient alteration of awareness - Plan 29 year old with hypercoaguable disorder presented with aphasia with right hemiparesis and an episode of altered mental status.. EEG ongoing. Will follow up on read. MRI Brain reviewed which showed Left MCA Infarction. CTA Head/Neck reviewed which did not reveal hemodynamically significant stenosis Neurochecks every 4 hours. Continue Xarelto to 20 mg PO daily. 2D Echo: EF(50-55%) Continue Atorvastatin 40 mg PO daily for secondary stroke prevention. Telemetry HgA1c: 5.2 and TSH: 0.6135. Results noted. PT/OT/Speech . Rehab recommended. Recommend EEG for episode of altered mental status. Case Management on board for discharge planning. Continue medical management per primary team. Plan discussed in detail with patient and the father.
--- NOTE | 2019-10-17 13:12 | PQF ---
DATE: 10-17-19 ATTN: DR. PATRICIA MCKEON Please exercise your independent, professional judgment in responding to the clarification form. Clinical indicators are provided on the bottom of this form for your review Please check appropriate box(s): [ X ] Encephalopathy: Type: [ X ] Acute [ ] Subacute [ ] Chronic Etiology [ X ] Metabolic [ ] Toxic [ ] Other (please specify) [ ] Transient Alteration of Awareness [ ] Other diagnosis [ ] Unable to determine In addition, please specify: Present on Admission (POA): [ X ] Yes [ ] No [ ] Unable to determine For continuity of documentation, please document condition throughout progress notes and discharge summary. Thank You. CLINICAL INDICATORS - SIGNS / SYMPTOMS / LABS / RESULTS AND LOCATION IN EMR: ER DX 10-14-19: RIGHT SIDED WEAKNESS, RESOLVED, ALTERED MENTAL STATUS H&P 10-14-19: ACUTE ENCEPHALOPATHY PN DR. MCKEON 10-17-19: CVA, AMS, ELEVATED TROPONIN CONSULT NOTE BRIAN WHARTON 10-15-19: LEFT MCA STROKE, THERE WAS SLIGHT DEGREE OF EDEMA, BUT FORTUNATELY THE AREA OF INFARCT IS QUITE PATCHY. RISK FACTORS / RESULTS AND LOCATION IN EMR: CONSULT NOTE BRIAN WHARTON 10-15-19: LEFT MCA STROKE, THERE WAS SLIGHT DEGREE OF EDEMA, BUT FORTUNATELY THE AREA OF INFARCT IS QUITE PATCHY. TREATMENTS / RESULTS AND LOCATION IN EMR: NEUROLOGY CONSULT 10-15-[address] 10-15-19 (This form is maintained as a part of the permanent medical record) 2014 [employer]. All Rights Reserved [email or web address] [email or web address]
[2019-10-17] MEDS: Atorvastatin Calcium 40 MG TAB PO SCH (20:27)
--- NOTE | 2019-10-18 05:28 | PDOC.FM ---
- Subjective Subjective: Patient was resting comfortably in bed, watching TV, at the time of evaluation. Patient denied any acute overnight events, to include STANLEY, visual disturbances, chest pain, SOB or LE pain. - Objective Vital Signs & Weight: Vital Signs (12 hours) Temp Pulse Resp BP Pulse Ox 10/18/19 04:18 98.3 F 67 18 97/64 100 10/18/19 00:14 97.8 F 68 18 99/65 99 10/17/19 21:27 98.2 F 83 18 99/63 100 Weight Admit Weight 111.157 kg Weight 111.157 kg I&O: 10/16/19 10/17/19 10/18/19 06:59 06:59 06:59 Intake Total 720 720 Output Total 200 Balance 720 520 Result Diagrams: 10/15/19 04:38 10/15/19 04:38 Phys Exam - Physical Examination Constitutional: NAD HEENT: PERRLA, moist MMs, sclera anicteric, oral pharynx no lesions Neck: supple, full ROM Respiratory: no wheezing, no rales, no rhonchi, clear to auscultation bilateral Cardiovascular: RRR, no significant murmur, no rub Gastrointestinal: soft, non-tender, no distention, positive bowel sounds Musculoskeletal: no edema, pulses present Neurological: moves all 4 limbs Right-sided facial droop, 1/5 strength in RUE, 2/5 strength in RLE Psychiatric: normal affect Skin: no rash Dx/Plan (1) CVA (cerebral vascular accident) Code(s): I63.9 - CEREBRAL INFARCTION, UNSPECIFIED Status: Acute (2) Altered mental status Code(s): R41.82 - ALTERED MENTAL STATUS, UNSPECIFIED Status: Acute Qualifiers: Altered mental status type: transient alteration of awareness Qualified Code(s): R40.4 - Transient alteration of awareness (3) Elevated troponin Code(s): R79.89 - OTHER SPECIFIED ABNORMAL FINDINGS OF BLOOD CHEMISTRY Status : Acute - Plan Plan: Patient is a 29 y/o female who presents to the ED with AMS and right-sided weakness. #Acute Infarct of Left MCA -CXR: NAF -CT Brain (10/13): NAF -MRI Brain (10/13): Left MCA Infarct -CTA Head/Neck: NAF -CT Brain (10/14): Evolving Left MCA Infarct -CT Brain (10/15): Evolving Left MCA Infarct -Physical exam continues to demonstrate right-sided weakness / hemiparesis -Patient able to indicate "Yes" and "No" but cannot articulate individual words or phrases -Neurochecks Q4H w/ NIHSS -Stroke Team: Consulted, recs appreciated -RPR, UA, UDS, UPT - Unremarkable -Neuro Consult: Dr. Mcwilliams aware, following - recommended Echo and increasing home Xarelto to 20 mg PO daily -Echo: EF(50-55%) -FLP: Tri(79), Chol(198), LDL(131), HDL(51) - ASCVD Risk: 0.4% - Will continue Atorvastatin 40 mg PO daily -HgA1c: 5.2 -TSH: 0.6135 -PT/OT/Speech: Consulted - recommend Inpatient Rehab -Case Management: Consulted, appreciate assistance w/ DC planning - choice letter sent, currently awaiting response #Indeterminate Troponins -Trops: 0.024, 0.021, 0.021 -EKG: NSR (83) #Normocytic Anemia -Noted during initial evaluation w/ patient and patient's mother - has not been on Supplemental Iron for 2-3 months -H.1 / MCV: 84 - will initiate Supplemental Iron and continue to monitor #Hx of DVT -Patient/Patient's mother reports Hx of heavy menses with large clots, not able to use control due to unspecified "blood disorder" -Patient's grandmother mentioned Hx of multiple bilateral breast surgeries due to "uncontrolled growth" - breasts appear abnormally large and firm w/ atypical skin dimples on physical exam, abnormally dense on CXR -Patient is currently followed Dr. Tucker (Hem/Onc) at & for a "blood disorder" - records received and reviewed -No known diagnosis or reason for hypercoagulable state found within & records PCP: Dr. Tucker Code: Full Diet: Regular Activity: Ad tanisha VTE: Xarelto 20 mg PO daily, per Neuro GI PPX: Tums Dispo: Patient is currently stable and admitted to the Stroke Floor for ongoing evaluation following an Acute Left MCA Infarct. Will continue to monitor closely , specifically with regard to Neuro exam, and coordinate as needed with Neuro. Will coordinate as needed with Case Management for DC planning. Expected LOS < 48H.
[2019-10-18] MEDS: Ferrous Sulfate 325 MG TAB PO SCH (08:46)
[2019-10-18] MEDS: Rivaroxaban 10 MG TAB PO SCH (08:46)
--- NOTE | 2019-10-18 10:11 | EEG ---
DATE OF SERVICE: 10/17/2019 This EEG was performed using 24-channel [employer] video digital EEG machine with 24 disk electrodes. This was an extended 2 hours 10 minutes of inpatient video EEG recording. BACKGROUND: There was a nonsustained posterior background rhythm of 7 to 8 Hz. Minimal reactivity seen with eye opening and closure. HYPERVENTILATION: Not performed. PHOTIC STIMULATION: No significant response seen with photic stimulation. SLEEP: Drowsiness and sleep were observed. EEG DIAGNOSES: 1. Occasional irregular theta activity, left greater than right, seen throughout the recording. 2. Nonsustained slow posterior background rhythm. CLINICAL INTERPRETATION: This EEG is consistent with focal cerebral dysfunction. In the left cerebral hemisphere, there is also evidence of moderate generalized nonspecific cerebral dysfunction. No ictal or interictal epileptiform abnormality seen during the recording. Job ID: [id number] [facility]
--- NOTE | 2019-10-18 12:38 | PDOC.HOSPP ---
- Subjective Encounter Date: 10/18/19 Subjective: NEUROLOGY PROGRESS NOTE No acute events overnight. Aphasic due to left MCA stroke but responds to yes and no question. Follows one step commands but difficult in following 2 step commands. - Objective Vital Signs & Weight: Vital Signs (12 hours) Temp Pulse Resp BP BP Pulse Ox 10/18/19 11:36 97.5 F L 78 18 114/72 99 10/18/19 08:00 98.1 F 72 14 121/70 100 10/18/19 04:18 98.3 F 67 18 97/64 100 Weight Admit Weight 245 lb 0.96 oz Weight 245 lb 0.96 oz I&O: 10/17/19 10/18/19 10/19/19 06:59 06:59 06:59 Intake Total 750 Output Total 200 Balance 550 Result Diagrams: 10/15/19 04:38 10/15/19 04:38 Radiology Reviewed by me: Yes EKG Reviewed by me: Yes Hospitalist ROS - Review of Systems ROS unobtainable: due to mental status (aphasia) - Medication Medications: Active Medications Generic Name Dose Route Start Last Admin Trade Name Freq PRN Reason Stop Dose Admin Acetaminophen 650 mg 10/14/19 11:55 10/16/19 20:38 Tylenol PO 650 mg Q4H PRN Administration Headache/Fever/Mild Pain (1-3) Atorvastatin Calcium 40 mg 10/14/19 21:00 10/17/19 20:27 Lipitor PO 40 mg HS ALISHA Administration Ferrous Sulfate 325 mg 10/15/19 08:00 10/18/19 08:46 Feosol PO 325 mg QAM-WM ALISHA Administration Rivaroxaban 20 mg 10/15/19 09:00 10/18/19 08:46 Xarelto PO 20 mg DAILY ALISHA Administration Sodium Chloride 10 ml 10/14/19 11:55 10/16/19 20:39 Flush - Normal Saline IVF 10 ml PRN PRN Administration Saline Flush - Exam General Appearance: awake alert Eye: PERRL ENT: normocephalic atraumatic Neck: supple Heart: RRR Respiratory: CTAB Gastrointestinal: soft Extremities: no cyanosis, no clubbing, no edema Skin: normal turgor, no lesions, no rashes Neurological: facial droop, hemiplegia, speech deficit Neurological - other findings: right facial droop, right hemiplegia, aphasia Musculoskeletal: no muscle wasting Psychiatric: normal affect, normal behavior (aphasic) Hosp A/P (1) CVA (cerebral vascular accident) Code(s): I63.9 - CEREBRAL INFARCTION, UNSPECIFIED Status: Acute (2) Altered mental status Code(s): R41.82 - ALTERED MENTAL STATUS, UNSPECIFIED Status: Acute Qualifiers: Altered mental status type: transient alteration of awareness Qualified Code(s): R40.4 - Transient alteration of awareness - Plan PT/OT, speech therapy, DVT proph w/lovenox 29 year old with hypercoaguable disorder presented with aphasia with right hemiparesis and an episode of altered mental status. EEG reviewed which was negative for seizure activity. MRI Brain reviewed which showed Left MCA Infarction. CTA Head/Neck reviewed which did not reveal hemodynamically significant stenosis Neurochecks every 4 hours. Continue Xarelto to 20 mg PO daily for secondary stroke prevention. 2D Echo: EF(50-55%). Results noted. Continue Atorvastatin 40 mg PO daily for secondary stroke prevention. Telemetry HgA1c: 5.2 and TSH: 0.6135. Results noted. PT/OT/Speech . Rehab recommended. Case Management on board for discharge planning. Continue medical management per primary team. Plan discussed in detail with patient and the floor team during MDR rounds.
[2019-10-18 16:06] VITALS: BP 119/72; TEMP 97.4
--- NOTE | 2019-10-19 02:35 | DIS ---
DATE OF ADMISSION: 10/14/2019 DATE OF DISCHARGE: 10/18/2019 RESIDENT: Indra Roper MD ADMITTING ATTENDING: Raghavendra Saucedo MD DISCHARGE ATTENDING: Emma Coronado MD CONSULTS: 1. Sunil Mcwilliams MD, Neuro. 2. Bonnie Auguste MD, Neuro. PROCEDURES PERFORMED: Brain CT scan performed on 10/14/2019, showing impression of normal CT scan of the head. CT angiography performed on 10/14/2019, showing no significant stenosis. Chest x-ray performed on 10/14/2019, showing no acute cardiopulmonary processes. Brain MRI performed on 10/14/2019, showing an acute left MCA distribution infarct. Brain CT performed on 10/15/2019, showing evolving left MCA stroke with some increased edema to the left cerebrum. Echocardiogram performed on 10/15/2019, indicating a technically difficult study with poor endocardial definition. Left ventricular ejection fraction estimated at 50% to 55%. Mild mitral regurgitation present. Mild tricuspid regurgitation present. EEG performed on 10/16/2019, demonstrating findings consistent with focal cerebral dysfunction in the left cerebral hemisphere. There is also evidence of moderate generalized nonspecific cerebral dysfunction. No ictal or interictal epileptiform abnormality seen during the recording. PRIMARY DIAGNOSIS: Acute metabolic encephalopathy secondary to cerebrovascular accident localized to the left MCA. SECONDARY DIAGNOSES: Normocytic anemia, history of deep venous thrombosis. DISCHARGE MEDICATIONS: 1. Atorvastatin 40 mg p.o. daily. 2. Xarelto 20 mg p.o. daily. 3. Ferrous sulfate 142 mg p.o. daily. 4. Acetaminophen 500 mg b.i.d. 5. Amitriptyline 10 mg p.o. at bedtime. 6. Gabapentin 300 mg p.o. t.i.d. DISCONTINUED MEDICATIONS: Lovenox 10 mg p.o. daily. HISTORY OF PRESENT ILLNESS AND HOSPITAL COURSE: The patient is a 29-year-old female with a past medical history significant for anemia and history of DVT several years prior as well as migraines, who presents with a complaint of right-sided weakness and difficulty with speech, weakness has since resolved in her right leg, but remains in the right arm. Per EMS, the patient's mother noted that these deficits occurred approximately 45 minutes prior to calling 911. The patient also had a similar episode the day prior to presentation at which time she was seen at [facility] with an otherwise negative workup and subsequently discharged home with a diagnosis of transient alteration of consciousness. The patient's mother said she minimally talked the entire night and slept the majority of the afternoon. The patient did not eat much for dinner or breakfast the following morning. After much questioning, it was determined that the patient was last seen normal on the morning of 10/13/2019. Per the ED provider while in the emergency department, the patient would not shake her head in response to questions. When asked to speak, however, she refused. The patient was ultimately able to mutter some words that did not seem to make sense. When asked if she had any pain, the patient shook her head no. When asked if the episode the prior morning was the same as the episode that she was currently experiencing, the patient nodded her head yes. On exam, the patient continues to nod and shake her head in response to questions only of the yes and no category. The patient would make attempts to speak, but would only mumble. The patient nods up when asked if she had a headache. The patient's mother voices that the patient has not had a headache for the past 2 to 3 days. The patient nodded when asked if she was in pain and nodded yes when asked if she had heavy periods. Per the patient's mother, the patient has had heavy menses with large clots monthly. They typically last for about seven days. The patient takes gabapentin for nerve pain in her right arm for the past 2 to 3 years, as well as amitriptyline and Tylenol for migraines. Most of the patient's history and ROS due to the patient's nonverbal status was subsequently obtained from the ED attending physician as well as the patient's mother, who was at bedside for the entirety of the exam. While in the emergency department, the patient was given aspirin 162 mg and initial imaging studies were performed with results of which are mentioned elsewhere in this document. The patient was subsequently transferred to the stroke floor for subsequent workup. An MRI was performed demonstrating a left MCA infarct and Neurology was subsequently consulted. Due to localized edema within the patient's brain, the patient was instructed to have her head of the bed elevated at approximately 30 degrees and was also placed on fluid restrictions. Additionally, the patient's medication regimen was altered to include Lovenox 20 mg p.o. daily as opposed to Lovenox 10 mg p.o. daily. The patient was evaluated by PT, OT, and Speech Therapy and her condition subsequently improved with residual right-sided weakness of her right upper extremity estimated to be 1/5 and residual weakness in her right lower extremity estimated to be 2/5 , as well as notable facial drooping on the right side. The patient was subsequently prepped for discharge to an inpatient rehabilitation facility. Prior to discharge, the patient's vital signs were recorded as temperature 97.5, pulse 78, respirations 18, oxygen saturations 99% on room air, and blood pressure 114/72. Laboratory analysis revealed a white blood cell count of 6.9, hemoglobin 10.3, hematocrit 32.1, platelet count 150. Coagulation panel revealed a PT of 14.2, INR of 1.1, APTT of 45.4. Chem panel revealed a sodium of 135, potassium 3.8, chloride 107, carbon dioxide 21, BUN 8, creatinine 0.87, glucose 100, hemoglobin A1c 5.4, calcium 9.4 , total bilirubin 0.3, AST 14, ALT 9, alkaline phosphatase 68, creatine kinase 98. Troponins were measured at 0.024, 0.021, 0.021. Serum total protein 6.9, triglyceride 79, cholesterol 198, LDL 131, HDL 51, TSH 0.6135, prolactin 17.74. Serum test is negative. Urinalysis was unremarkable. Urine drug screen was unremarkable and serology for syphilis IgG and IgM antibodies was negative. DISPOSITION: Stable. DISCHARGE INSTRUCTIONS: 1. Location: Inpatient rehab facility. 2. Diet: Heart healthy. 3. Activity: As recommended by speech and physical and occupational therapists at inpatient rehab facility. 4. Followup: The patient was encouraged to follow up with her primary care physician in 7 days in order to discuss her most recent hospitalization. Additionally, the patient was encouraged to follow up with Dr. Soco Tucker within 7 days in order to discuss her most recent hospitalization and otherwise unspecified hypercoagulable state, as well as the need for ongoing anticoagulation. Job ID: [id number] [facility]
--- NOTE | 2019-10-20 13:03 | CT ---
Addendum: There does appear to be an occlusion or high-grade stenosis involving the left M1 segment. Adjacent vessels may represent venous collaterals. Findings may be due to a long-standing process which allowed for collaterals performed. There is presumed at least partial occlusion of the associat ed lenticulostriate vessels which result in the areas of infarction as noted on MRI performed today. Results of study discussed with Michaela Baldemar 10/14/2019 at 4:28 PM Code CR Transcribed Date/Time: 10/20/2019 1:04 PM Reported By: Starla Temple by Starla Temple. PRELIMINARY REPORT/[facility]/EMERGENCY AFTER HOURS PROCEDURE: his report was discussed with Dasha Stevens RN by Tami Parmar on Oct 14, 2019 07:18:00 CDT. Addendum electronically signed by Tami Parmar on October 14, 2019 7:19:18 AM CDT EXAM: CTA Head and Neck with Intravenous Contrast. CLINICAL HISTORY: LEVEL ONE STROKE//LAST SEEN NORMAL 0600 TODAY//RIGHT SIDED WEAKNESS//AMS//APHASIA TECHNIQUE: Axial CTA images of the head and neck performed with intravenous contrast. Two-dimensional MIP and/or three-dimensional MIP and volume rendered reformations were performed. Note: Per PQRS, the description of internal carotid artery percent stenosis, including 0 percent or normal exam, is b ased on [place] Symptomatic Carotid Endarterectomy Trial (NASCET) criteria. CONTRAST: With; ISOVUE 370,100mL COMPARISON: Noncontrast CT head earlier same day. FINDINGS: CTA NECK: COMMON CAROTID ARTERIES No significant stenosis. No dissection or occlusion. INTERNAL CAROTID ARTERIES No stenosis by NASCET criteria. No dissection or occlusion. VERTEBRAL ARTERIES No significant stenosis. No dissection or occlusion. CTA HEAD: ANTERIOR CEREBRAL ARTERIES No significant stenosis. No occlusion. No aneurysm. MIDDLE CEREBRAL ARTERIES No significant stenosis. No occlusion. No aneurysm. POSTERIOR CEREBRAL ARTERIES No significant stenosis. No occlusion. No aneurysm. BASILAR ARTERY No significant stenosis. No occlusion. No aneurysm. OTHER: Mosaic attenuation of the visualized lungs. Residual thymic tissue. Dense fibroglandular rosanna ast tissue. SOFT TISSUES No acute finding. No masses or lymphadenopathy. BONES No acute osseous abnormality. IMPRESSION: No vascular derangement noted on angiogram of the head and neck. Consider MRI if symptom s persist. ELECTRONICALLY SIGNED BY: Ilan Molina MD Oct 14, 2019 7:14:44 AM CDT FINAL REPORT: EXAM: CT ANGIOGRAM OF THE HEAD AND NECK INDICATION: Stroke. COMPARISON: None. TECHNIQUE: CT angiogram of the head and neck are performed in the axial plane. Three-dimensional reformatted guillermo ges are submitted for interpretation. FINDINGS: CTA OF THE HEAD WITH AND WITHOUT CONTRAST: POSTCONTRAST CT OF BRAIN: Pathologic enhancement: No pathologic enhancement the brain. Postcontrast soft tissue neck CT: Aerodigestive tract: Patent. No mucosal abnormality. Sinuses: Adequate aeration.. Orbits: Bilateral ocular lenses are appropriately located. Both globes are intact. Retrobulbar fat is preserved. Symmetric attenuation the optic nerves and ocular rectus muscles. Salivary glands:Symmetric attenuation of the parotid and submandibular glands. Thyroid gland: Appropriate attenuation. Lymph nodes: No evidence of lymphadenopathy by size criteria. Paraspinal muscles: Symmetric attenuation of the sternocleidomastoid muscles. Appropriate attenuation of the paraspinal muscles. Cervical spine:Vertebral body height is maintained. No fracture. No significant central canal stenosi s or significant neural foraminal narrowing. Limited evaluation by technique. Upper mediastinum and lung apices: No acute abnormality. CTA OF THE NECK WITH CONTRAST: Aorta: Appropriate enhancement and luminal diameter. Right carotid artery: Appropriate enhancement and luminal diameter. No significant stenosis based upo n NASCET criteria. Left carotid: Appropriate enhancement and luminal diameter. No significant stenosis based upon NASCET criteria. Subclavian arteries:Appropriate enhancement. Vertebral arteries:Patent throughout their course in the neck. Vertebral arteries are essentially cod ominant. CTA OF THE BRAIN: Intracranial internal carotid arteries:Appropriate enhancement and luminal diameter. Anterior circulation: Slightly decreased in luminal diameter of the right A1 segment, likely represen ting a congenital variant. Proximal A2 segments are essentially symmetric. The right A2 segment is supplied via a patent anterior communicating artery. Symmetric enhancement and luminal diameter of th e M1 segments and proximal MCA branches. Intracranial vertebral arteries: Appropriate enhancement and luminal diameter. Posterior circulation: Appropriate enhancement and luminal diameter. No significant stenosis. IMPRESSION: 1. This report is in agreement with initial report by [facility]. 2. No significant stenosis.
--- NOTE | 2019-10-21 14:18 | EKG ---
Test Reason : Blood Pressure : / mmHG Vent. Rate : 083 BPM Atrial Rate : 083 BPM P-R Int : 132 ms QRS Dur : 080 ms QT Int : 372 ms P-R-T Axes : 040 040 034 degrees QTc Int : 437 ms Normal sinus rhythm Normal ECG Confirmed by CHANDLER YUAN M.D. ([id number]), technical editor PAM CORDOBA ([id number]) on 10/21/2019 2:18:04 PM Referred By: Confirmed By:CHANDLER YUAN M.D.
== END 2019-10-18 17:18 | DRG 64 ==
LOC: ERS 06:42 → OBSVTOIN 11:00 → 2SE 11:00
PROVIDERS: ADMIT Student in an Organized Health Care Education/Training Program; ATTEND Student in an Organized Health Care Education/Training Program
DX: I63.312 Cerebral infarction due to thrombosis of left middle cerebral artery (principal); G93.41 Metabolic encephalopathy; G93.6 Cerebral edema; G81.91 Hemiplegia, unspecified affecting right dominant side; D68.59 Other primary thrombophilia; D64.9 Anemia, unspecified; G43.909 Migraine, unspecified, not intractable, without status migrainosus; I08.1 Rheumatic disorders of both mitral and tricuspid valves; R29.810 Facial weakness; R47.01 Aphasia; G62.9 Polyneuropathy, unspecified; Z86.718 Personal history of other venous thrombosis and embolism; Z79.01 Long term (current) use of anticoagulants
CPT/HCPCS: 36415; 36416; 36600; 70450; 70496; 70498; 70551; 71045; 80053; 80061; 80306; 81001; 82550; 83036; 84146; 84443; 84484; 84703; 85025; 85610; 85730; 86780; 93005; 93306; 95712; 95816; 95819; 95957

== ENCOUNTER 2021-01-07 20:33 | Emergency (ER) | payer BC | END 2021-01-07 23:07 | disposition left against medical advice (07) | LOC: ERS 20:33 | DX: R20.2 Paresthesia of skin (principal); R53.1 Weakness; Z86.73 Personal history of transient ischemic attack (TIA), and cerebral infarction without residual deficits; Z79.01 Long term (current) use of anticoagulants; Z79.899 Other long term (current) drug therapy ==